=== PATIENT | male | born 1975 | race Caucasian/White ===

== ENCOUNTER 2018-08-30 20:28 | Inpatient (IN) | payer SELFPAY ==
[~2018-08-30] VITALS: Ht 182.9 cm; Wt 108.0 kg
[2018-08-30] MEDS ORDERED: FLUO-191 PO (20:40)
[2018-08-30] MEDS ORDERED: OLAN10TA3 PO (20:40)
[2018-08-30 20:41] VITALS: BP 139/99
[2018-08-30] MEDS: LORazepam 2 MG TABLET PO PRN (21:18)
[2018-08-30] MEDS: HALOPERIDOL 5 MG TABLET PO PRN (21:18)
[2018-08-30 21:42] VITALS: BP 135/83
[2018-08-30] MEDS ORDERED: MAGNESIUM HYDROXIDE SUSPENSION 30 ML UDCUP PO PRN (23:15)
[2018-08-30] MEDS ORDERED: ACETAMINOPHEN 325 MG TABLET PO PRN (23:15)
[2018-08-30] MEDS ORDERED: DOCUSATE SODIUM 100 MG CAPSULE PO PRN (23:15)
[2018-08-30] MEDS ORDERED: PETROLATUM,WHITE 28 GM JELLY TP PRN (23:15)
[2018-08-30] MEDS ORDERED: MAG HYDROX/AL HYDROX/SIMETH ES 30 ML SUSPENSION UDCUP PO PRN (23:15)
[2018-08-30] MEDS ORDERED: GuaiFENesin/D-METHORPHAN [SUGAR-FREE] 200-20MG/10 ML SYRUP UDCUP PO PRN (23:15)
[2018-08-30] MEDS ORDERED: ONDANSETRON HCL 4 MG TABLET PO PRN (23:15)
[2018-08-30] MEDS ORDERED: ALBUTEROL SULFATE HFA 90 MCG/PUFF 8 GM INHALER IH PRN (23:15)
[2018-08-30] MEDS ORDERED: LOPERAMIDE HCL 2 MG CAPSULE PO PRN (23:15)
[2018-08-30] MEDS ORDERED: NICOTINE 14 MG/24 HOUR PATCH TD PRN (23:15)
[2018-08-30] MEDS ORDERED: IBUPROFEN 400 MG TABLET PO PRN (23:15)
[2018-08-30] MEDS ORDERED: CloNIDine HCL 0.1 MG TABLET PO PRN (23:15)
[2018-08-31 06:09] VITALS: BP 124/76
[2018-08-31 07:50] LABS: BASOPHILS % (AUTO) 0.4 % (0.0-2.0); EOSINOPHILS % (AUTO) 2.7 % (1.0-6.0); HEMATOCRIT 45.6 % (41-53); HEMOGLOBIN 15.4 g/dL (13.5-17.5); HEMOGLOBIN A1C 6.4 % (4.5-6.2); LYMPHOCYTES % (AUTO) 19.2 % (22.0-44.0); MEAN CORPUSCULAR HEMOGLOBIN 30.6 pg (26.0-34.0); MEAN CORPUSCULAR HGB CONC 33.8 G/dL (31.0-37.0); MEAN CORPUSCULAR VOLUME 91 fL (80-100); MONOCYTES # (AUTO) 0.8 K/uL (0.1-1.0); MONOCYTES % (AUTO) 7.9 % (2.0-9.0); NEUTROPHILS # (AUTO) 7.3 K/uL (1.8-7.7); NEUTROPHILS % (AUTO) 69.8 % (40.0-70.0); PLATELET COUNT (AUTO) 259 K/uL (150-450); RED BLOOD CELL COUNT(AUTO) 5.03 MIL/uL (4.50-5.90); RED CELL DISTRIBUTION WIDTH 13.8 % (11.5-14.5)
[2018-08-31 08:03] LABS: ALANINE AMINOTRANSFERASE 63 U/L (12-78); ALBUMIN 3.9 g/dL (3.4-5.0); ALKALINE PHOSPHATASE 100 U/L (46-116); ANION GAP 7 mmol/L (8-16); ASPARTATE AMINOTRANSFERASE 27 U/L (15-37); BILIRUBIN,TOTAL 0.9 mg/dL (0.1-1.0); CALCIUM, TOTAL 9.2 mg/dL (8.8-10.5); CARBON DIOXIDE 30 mmol/L (22-29); CHLORIDE 103 mmol/L (98-107); CHOLESTEROL 225 mg/dL (131-200); CREATININE 1.06 mg/dL (0.60-1.30); FREE T4 (FREE THYROXINE) 1.54 ng/dL (0.76-1.46); GLOMERULAR FILTR. RATE CALC > 60 mL/min (>60); GLUCOSE,RANDOM 86 mg/dL (70-110); HDL CHOLESTEROL 32 mg/dL (40-60); LDL CHOL (CALC.) 177 mg/dL (0-130); SODIUM SERUM 140 mmol/L (136-145); THYROID STIMULATING HORMONE 1.42 uIU/mL (0.36-3.74); TOTAL PROTEIN, SERUM 7.6 g/dL (6.4-8.2); TRIGLYCERIDES 78 mg/dL (15-150); UREA NITROGEN, BLOOD 18 mg/dL (7-18)
[2018-08-31 08:12] VITALS: BP 107/72
[2018-08-31] MEDS: FLUoxetine HCL 20 MG CAPSULE PO SCH (12:22)
[2018-08-31] MEDS: LORazepam 2 MG TABLET PO PRN (16:08)
[2018-08-31 16:09] VITALS: BP 139/78
[2018-08-31] MEDS: HALOPERIDOL 5 MG TABLET PO PRN (16:09)
[2018-08-31] MEDS: ChlorproMAZINE HCL 50 MG TABLET PO SCH (20:18)
[2018-09-01] MEDS: LORazepam 2 MG TABLET PO PRN ×3 (06:10→17:12)
[2018-09-01 06:18] VITALS: BP 103/73
[2018-09-01 08:09] VITALS: BP 119/68
[2018-09-01] MEDS: FLUoxetine HCL 20 MG CAPSULE PO SCH (08:36)
[2018-09-01 09:26] LABS: APPEARANCE,URINE TURBID (CLEAR); GLUCOSE, URINE (UA) NEGATIVE (NEGATIVE); KETONES,URINE TRACE mg/dL (NEGATIVE); LEUKOCYTE ESTERASE ,URINE NEGATIVE (NEGATIVE); NITRATE,URINE NEGATIVE (NEGATIVE); OCCULT BLOOD,URINE NEGATIVE (NEGATIVE); PROTEIN,URINE NEGATIVE (NEGATIVE)
[2018-09-01 09:27] LABS: BILIRUBIN,URINE PRELIM. POSITIVE (NEGATIVE)
[2018-09-01 09:29] LABS: AMPHET/METH SCREEN,URINE POSITIVE (NEGATIVE); BARBITURATE SCREEN, URINE NEGATIVE (NEGATIVE); BENZODIAZEPINES SCREEN,URINE NEGATIVE (NEGATIVE); CANNABINOID SCREEN,URINE NEGATIVE (NEGATIVE); COCAINE SCREEN,URINE NEGATIVE (NEGATIVE); METHADONE SCREEN, URINE NEGATIVE (NEGATIVE); OPIATE SCREEN,URINE NEGATIVE (NEGATIVE)
[2018-09-01 09:30] LABS: PHENCYCLIDINE SCREEN,URINE NEGATIVE (NEGATIVE)
[2018-09-01 16:06] VITALS: BP 124/83
[2018-09-01] MEDS: ChlorproMAZINE HCL 50 MG TABLET PO SCH (20:01)
[2018-09-01] MEDS: ZOLPIDEM TARTRATE 10 MG TABLET PO PRN (20:01)
[2018-09-02 06:33] VITALS: BP 122/78
[2018-09-02 08:11] VITALS: BP 135/60
[2018-09-02] MEDS: FLUoxetine HCL 20 MG CAPSULE PO SCH (09:13)
[2018-09-02] MEDS: LORazepam 2 MG TABLET PO PRN ×2 (09:13→20:47)
[2018-09-02] MEDS: HALOPERIDOL 5 MG TABLET PO PRN (09:14)
[2018-09-02] MEDS: ZOLPIDEM TARTRATE 10 MG TABLET PO PRN (20:47)
[2018-09-02] MEDS: ChlorproMAZINE HCL 50 MG TABLET PO SCH (20:47)
[2018-09-03 06:17] VITALS: BP 122/78
[2018-09-03 08:28] VITALS: BP 127/61
[2018-09-03] MEDS: FLUoxetine HCL 20 MG CAPSULE PO SCH (09:29)
[2018-09-03] MEDS: ChlorproMAZINE HCL 50 MG TABLET PO SCH ×2 (12:00→20:50)
[2018-09-03 16:13] VITALS: BP 116/72
[2018-09-03] MEDS: LORazepam 2 MG TABLET PO PRN (16:26)
[2018-09-03] MEDS: HALOPERIDOL 5 MG TABLET PO PRN (16:26)
[2018-09-03] MEDS: ZOLPIDEM TARTRATE 10 MG TABLET PO PRN (20:50)
[2018-09-04 06:11] VITALS: BP 122/69
[2018-09-04 08:05] VITALS: BP 120/71
[2018-09-04] MEDS: FLUoxetine HCL 20 MG CAPSULE PO SCH (09:08)
[2018-09-04] MEDS: ChlorproMAZINE HCL 50 MG TABLET PO SCH ×2 (09:08→20:36)
[2018-09-04] MEDS: LORazepam 2 MG TABLET PO PRN ×2 (09:12→16:44)
[2018-09-04] MEDS: ARIPiprazole 15 MG TABLET PO SCH (10:36)
[2018-09-04 16:02] VITALS: BP 124/66
[2018-09-05 06:37] VITALS: BP 138/73
[2018-09-05 08:17] VITALS: BP 131/84
[2018-09-05] MEDS: FLUoxetine HCL 20 MG CAPSULE PO SCH (09:13)
[2018-09-05] MEDS: ARIPiprazole 15 MG TABLET PO SCH (09:14)
[2018-09-05] MEDS: ChlorproMAZINE HCL 50 MG TABLET PO SCH ×2 (09:14→20:07)
[2018-09-05 17:06] VITALS: BP 104/83
[2018-09-05] MEDS: LORazepam 2 MG TABLET PO PRN (17:12)
[2018-09-06 05:52] VITALS: BP 114/82
[2018-09-06 08:28] VITALS: BP 130/71
[2018-09-06] MEDS: FLUoxetine HCL 20 MG CAPSULE PO SCH (08:58)
[2018-09-06] MEDS: ChlorproMAZINE HCL 50 MG TABLET PO SCH ×2 (08:58→20:25)
[2018-09-06] MEDS: ARIPiprazole 15 MG TABLET PO SCH (08:58)
[2018-09-06 16:09] VITALS: BP 129/82
[2018-09-06] MEDS: LORazepam 2 MG TABLET PO PRN (18:09)
[2018-09-06] MEDS: HALOPERIDOL 5 MG TABLET PO PRN (18:09)
[2018-09-06] MEDS: ZOLPIDEM TARTRATE 10 MG TABLET PO PRN (20:25)
[2018-09-07 00:55] VITALS: BP 120/77
[2018-09-07] MEDS: ChlorproMAZINE HCL 50 MG TABLET PO SCH ×2 (08:19→20:37)
[2018-09-07] MEDS: FLUoxetine HCL 20 MG CAPSULE PO SCH (08:19)
[2018-09-07] MEDS: ARIPiprazole 15 MG TABLET PO SCH (08:19)
[2018-09-07 11:40] VITALS: BP 109/68
[2018-09-07 16:05] VITALS: BP 108/66
[2018-09-07] MEDS: LORazepam 2 MG TABLET PO PRN (16:54)
[2018-09-07] MEDS: ZOLPIDEM TARTRATE 10 MG TABLET PO PRN (20:37)
[2018-09-08 06:30] VITALS: BP 105/62
[2018-09-08 08:05] VITALS: BP 108/64
[2018-09-08] MEDS: ARIPiprazole 15 MG TABLET PO SCH (08:30)
[2018-09-08] MEDS: FLUoxetine HCL 20 MG CAPSULE PO SCH (08:31)
[2018-09-08] MEDS: ChlorproMAZINE HCL 50 MG TABLET PO SCH ×2 (08:31→20:46)
[2018-09-08] MEDS: LORazepam 2 MG TABLET PO PRN (14:10)
[2018-09-08 16:25] VITALS: BP 117/79
[2018-09-08] MEDS: ZOLPIDEM TARTRATE 10 MG TABLET PO PRN (20:46)
[2018-09-09 05:36] VITALS: BP 108/67
[2018-09-09 08:12] VITALS: BP 139/73
[2018-09-09] MEDS: FLUoxetine HCL 20 MG CAPSULE PO SCH (09:06)
[2018-09-09] MEDS: ARIPiprazole 15 MG TABLET PO SCH (09:06)
[2018-09-09] MEDS: ChlorproMAZINE HCL 50 MG TABLET PO SCH ×2 (09:06→21:16)
[2018-09-09] MEDS: LORazepam 2 MG TABLET PO PRN ×2 (12:40→17:28)
[2018-09-09 16:55] VITALS: BP 129/78
[2018-09-09] MEDS: ZOLPIDEM TARTRATE 10 MG TABLET PO PRN (21:16)
[2018-09-10 01:17] VITALS: BP 110/68
[2018-09-10] MEDS: ARIPiprazole 15 MG TABLET PO SCH (08:25)
[2018-09-10] MEDS: FLUoxetine HCL 20 MG CAPSULE PO SCH (08:25)
[2018-09-10] MEDS: ChlorproMAZINE HCL 50 MG TABLET PO SCH ×2 (08:25→20:12)
[2018-09-10 09:11] VITALS: BP 140/69
[2018-09-10] MEDS: LORazepam 2 MG TABLET PO PRN ×2 (12:55→20:13)
[2018-09-10 16:06] VITALS: BP 113/66
[2018-09-10] MEDS: ZOLPIDEM TARTRATE 10 MG TABLET PO PRN (21:07)
[2018-09-11 06:28] VITALS: BP 128/83
[2018-09-11 08:04] VITALS: BP 134/81
[2018-09-11] MEDS: ChlorproMAZINE HCL 50 MG TABLET PO SCH ×2 (08:22→21:01)
[2018-09-11] MEDS: ARIPiprazole 15 MG TABLET PO SCH (08:22)
[2018-09-11] MEDS: FLUoxetine HCL 20 MG CAPSULE PO SCH (08:22)
[2018-09-11] MEDS: LORazepam 2 MG TABLET PO PRN ×2 (10:58→16:25)
[2018-09-11 16:00] VITALS: BP 115/84
[2018-09-11] MEDS: HALOPERIDOL 5 MG TABLET PO PRN (16:25)
[2018-09-11] MEDS ORDERED: CHLO50 PO (18:05)
[2018-09-11] MEDS ORDERED: CHLO100T24 PO (18:05)
[2018-09-11] MEDS ORDERED: FLUO-191 PO (18:05)
[2018-09-11] MEDS ORDERED: ARIP15TA2 PO (18:05)
[2018-09-11] MEDS: ZOLPIDEM TARTRATE 10 MG TABLET PO PRN (21:01)
[2018-09-12 06:34] VITALS: BP 137/72
[2018-09-12 08:38] VITALS: BP 126/69
[2018-09-12] MEDS: ChlorproMAZINE HCL 50 MG TABLET PO SCH (08:45)
[2018-09-12] MEDS: FLUoxetine HCL 20 MG CAPSULE PO SCH (08:45)
[2018-09-12] MEDS: ARIPiprazole 15 MG TABLET PO SCH (08:45)
[2018-09-12] MEDS ORDERED: FLUO-191 PO (08:48)
[2018-09-12] MEDS ORDERED: ARIP15TA2 PO (08:48)
[2018-09-12] MEDS ORDERED: CHLO50 PO ×2 (08:48)
== END 2018-09-12 10:06 | disposition home or self-care (01) | DRG 885 ==
LOC: B3A 20:53
PROVIDERS: ADMIT Psychiatry & Neurology Psychiatry; ATTEND Psychiatry & Neurology Psychiatry
DX: F25.1 Schizoaffective disorder, depressive type (principal); F15.10 Other stimulant abuse, uncomplicated; E78.5 Hyperlipidemia, unspecified; D64.9 Anemia, unspecified; F60.3 Borderline personality disorder; G44.209 Tension-type headache, unspecified, not intractable; I10 Essential (primary) hypertension; J45.909 Unspecified asthma, uncomplicated; R73.03 Prediabetes; Z79.899 Other long term (current) drug therapy; Z88.0 Allergy status to penicillin
CPT/HCPCS: 80307; 83036; 84439; 84443; 87081